=== PATIENT | female | born 1985 | race Caucasian/White ===

== ENCOUNTER → 2016-09-28 | Outpatient (CLI) | payer MEDICAID | LOC: RAD 12:25 | PROVIDERS: ATTEND Family Medicine | DX: S49.91XA Unspecified injury of right shoulder and upper arm, initial encounter (principal); X58.XXXA Exposure to other specified factors, initial encounter ==

== ENCOUNTER → 2016-10-28 | Outpatient (CLI) | payer OTHER, MEDICAID | LOC: RAD 12:16 | PROVIDERS: ATTEND Family Medicine | DX: M54.41 Lumbago with sciatica, right side (principal) | CPT/HCPCS: 72110 ==

== ENCOUNTER → 2016-10-29 | Outpatient (CLI) | payer OTHER, MEDICAID | LOC: RAD 08:10 | PROVIDERS: ATTEND Family Medicine | DX: M25.511 Pain in right shoulder (principal) ==

== ENCOUNTER 2016-11-27 16:00 | Emergency (ER) | payer MEDICAID, OTHER ==
--- NOTE | 2016-11-27 16:28 | ER Document Report ---
ED Medical Screen (RME) - General Chief Complaint: Flank Pain Stated Complaint: RIGHT FLANK PAIN Time Seen by Provider: 11/27/16 16:22 Notes: Patient has been having pain in her right flank region since Monday. She saw her primary care provider on who diagnosed a UTI and put her on Cipro and pain medications. During the night last night, she says that her hands were wet from washing them after going to the bathroom and she tried to open her pill bottle and spilled it all down the drain. Has had some vomiting. No fever. PMH: . Fibromyalgia on tramadol. Allergic to Toradol and NSAIDs. This visit is this patient's fourth visit to this emergency department in 2 months. TRAVEL OUTSIDE OF THE [place] IN LAST 30 DAYS: No - Related Data Allergies/Adverse Reactions: ketorolac [From Toradol] Allergy (Verified 11/27/16 16:02) NSAIDS (Non-Steroidal Anti-Inflamma Allergy (Verified 11/27/16 16:02) Past Medical History Renal/ Medical History: Denies: Hx Peritoneal Dialysis Physical Exam - Vital signs Vitals: Temp Pulse Resp BP Pulse Ox 98.4 F 111 H 14 130/85 H 97 11/27/16 16:02 11/27/16 16:02 11/27/16 16:02 11/27/16 16:02 11/27/16 16:02 Course - Vital Signs Vital signs: Temp Pulse Resp BP Pulse Ox 98.4 F 111 H 14 130/85 H 97 11/27/16 16:02 11/27/16 16:02 11/27/16 16:02 11/27/16 16:02 11/27/16 16:02
[2016-11-27 16:58] LABS: ABSOLUTE BASOPHILS # (AUTO) 0.1 10^3/uL (0.0-0.2); ABSOLUTE EOSINOPHILS # (AUTO) 0.2 10^3/uL (0.0-0.6); ABSOLUTE LYMPHOCYTES (AUTO) 3.9 10^3/uL (0.5-4.7); ABSOLUTE MONOCYTES (AUTO) 0.9 10^3/uL (0.1-1.4); ABSOLUTE NEUT (AUTO) 6.5 10^3/uL (1.7-8.2); BASOPHILS % (AUTO) 0.9 % (0-2); EOSINOPHILS % (AUTO) 1.6 % (0-6); HEMATOCRIT 51.5 % (36.0-47.0); HEMOGLOBIN 17.1 g/dL (12.0-15.5); HGB HCT DIFFERENCE -0.2; LYMPHOCYTES % (AUTO) 33.6 % (13-45); MEAN CORPUSCULAR HEMOGLOBIN 33.4 pg (27.0-33.4); MEAN CORPUSCULAR HGB CONC 33.2 g/dL (32.0-36.0); MEAN CORPUSCULAR VOLUME 101 fl (80-97); MONOCYTES % (AUTO) 7.4 % (3-13); RED BLOOD COUNT 5.11 10^6/uL (3.72-5.28); RED CELL DISTRIBUTION WIDTH 13.1 % (11.5-14.0); SEGMENTED NEUTROPHILS % (AUTO) 56.5 % (42-78); WHITE BLOOD COUNT 11.5 10^3/uL (4.0-10.5)
--- NOTE | 2016-11-27 17:02 | RADIOLOGY REPORT (SQ) ---
EXAM DESCRIPTION: CT LTD RENAL STONE PROTOCOL ON COMPLETED DATE/TIME: 11/27/2016 4:50 pm REASON FOR STUDY: Right flank pain COMPARISON: None. TECHNIQUE: CT scan of the abdomen and pelvis performed without intravenous or oral contrast. Images reviewed with lung, soft tissue, and bone windows. Reconstructed coronal and sagittal MPR images revi ewed. All images stored on PACS. All CT scanners at this facility use dose modulation, iterative reconstruction, and/or weight based d osing when appropriate to reduce radiation dose to as low as reasonably achievable (ALARA). [facility]: Dose Right [facility]: CareDose [facility]: Dose Right [facility]: Teradose 4D [facility]: PsomasFMG RADIATION DOSE: 17.11mGy. LIMITATIONS: None. FINDINGS: LOWER CHEST: No significant findings. No nodules or infiltrates. NON-CONTRASTED LIVER, SPLEEN, ADRENALS: Evaluation limited by lack of IV contrast. No identified sign ificant masses. PANCREAS: No masses. No peripancreatic inflammatory changes. GALLBLADDER: Contracted. No calcified stones. RIGHT KIDNEY AND URETER: No solid masses. No significant calcification. No hydronephrosis or hydroure ter. LEFT KIDNEY AND URETER: No solid masses. No significant calcification. No hydronephrosis or hydrouret er. AORTA AND RETROPERITONEUM: No aneurysm. No retroperitoneal masses or adenopathy. BOWEL AND PERITONEAL CAVITY: No obvious masses or inflammatory changes. No free fluid. APPENDIX: Normal. PELVIS, BLADDER, AND ABDOMINAL WALL:Unremarkable decompressed bladder without stones or gross mass. IUD in the uterus. BONES: No significant findings. OTHER: No other significant finding. IMPRESSION: NO SIGNIFICANT OR ACUTE PROCESS IN THE ABDOMEN OR PELVIS. TECHNICAL DOCUMENTATION: JOB ID: [id number] Quality ID # [id number]: Final reports with documentation of one or more dose reduction techniques (e.g., Au tomated exposure control, adjustment of the mA and/or kV according to patient size, use of iterative reconstruction technique) 2010 [employer]- All Rights Reserved
[2016-11-27 17:04] LABS: APPEARANCE,URINE CLEAR; BILIRUBIN,URINE NEGATIVE (NEGATIVE); GLUCOSE, URINE NEGATIVE (NEGATIVE); KETONES,URINE NEGATIVE (NEGATIVE); LEUKOCYTE ESTERASE,URINE NEGATIVE (NEGATIVE); NITRITE,URINE NEGATIVE (NEGATIVE); PROTEIN,URINE NEGATIVE (NEGATIVE); URINE SPECIFIC GRAVITY 1.015; UROBILINOGEN,URINE NEGATIVE mg/dL (<2.0)
[2016-11-27 17:13] LABS: ALANINE AMINOTRANSFERASE 32 U/L (9-52); ALBUMIN 4.1 g/dL (3.5-5.0); ALKALINE PHOSPHATASE 68 U/L (38-126); ANION GAP 10 (5-19); ASPARTATE AMINO TRANSFERASE 21 U/L (14-36); BILIRUBIN,DIRECT 0.3 mg/dL (0.0-0.4); BILIRUBIN,TOTAL 0.5 mg/dL (0.2-1.3); BLOOD UREA NITROGEN 12 mg/dL (7-20); CALCIUM 9.6 mg/dL (8.4-10.2); CARBON DIOXIDE 30 mmol/L (22-30); CHLORIDE 102 mmol/L (98-107); CREATININE RESULT 0.85 mg/dL (0.52-1.25); GLUCOSE 91 mg/dL (75-110); POTASSIUM 4.9 mmol/L (3.6-5.0); SODIUM 141.6 mmol/L (137-145)
[2016-11-27] MEDS ORDERED: NORMAL SALINE 1000 ML 1,000 ML IV ONE (17:17)
--- NOTE | 2016-11-27 17:30 | ER Document Report ---
ED General - General Chief Complaint: Flank Pain Stated Complaint: RIGHT FLANK PAIN Time Seen by Provider: 11/27/16 16:22 Notes: Patient with h/o kidney stones, fibromyalgia, rt shoulder pain, and recent UTI comes to the office c/o rt flank pain x3 days. Pt was reported to have been seen by her PCM 4 days ago, dx'd with a UTI, and given antibiotics/pain meds. Pt states she did have a tramadol pill this medical policy specialist for her pain. Pt states the pain is to the rt flank and radiates toward her rt side/groin. She is still eating and drinking with no problems. Pt will feel a "pinching" pain if she sits upright in her rt back. Pt also notes suprapubic pressure, burning with urination, and some hematuria once today. Denies any fever, URI, cp, palp , syncope, sob, cough, wheeze, abdominal sharp pains, n/v/d/c, muscle weakness, or rash. Denies any back injury. + smoker. TRAVEL OUTSIDE OF THE [place] IN LAST 30 DAYS: No - Related Data Allergies/Adverse Reactions: ketorolac [From Toradol] Allergy (Verified 11/27/16 16:02) NSAIDS (Non-Steroidal Anti-Inflamma Allergy (Verified 11/27/16 16:02) Past Medical History - Social History Smoking Status: Current Every Day Smoker Family History: Reviewed & Not Pertinent Patient has suicidal ideation: No Patient has homicidal ideation: No Pulmonary Medical History: Reports: Hx Asthma Renal/ Medical History: Reports: Hx Kidney Stones. Denies: Hx Peritoneal Dialysis Surgical Hx: Negative Review of Systems - Review of Systems Notes: REVIEW OF SYSTEMS: CONSTITUTIONAL : Denies fever, chills, or sweats. Denies recent illness. EENT: Denies eye, ear, throat, or mouth pain or symptoms. Denies nasal or sinus congestion or discharge. Denies throat, tongue, or mouth swelling or difficulty swallowing. CARDIOVASCULAR: Denies chest pain. Denies palpitations or racing or irregular heart beat. Denies ankle edema. RESPIRATORY: Denies cough, cold, or chest congestion. Denies shortness of breath, difficulty breathing, or wheezing. GASTROINTESTINAL: Denies abdominal pain or distention. Denies nausea, vomiting , or diarrhea. Denies blood in vomitus, stools, or per rectum. Denies black, tarry stools. Denies constipation. GENITOURINARY: see hpi FEMALE GENITOURINARY: Denies vaginal bleeding, heavy or abnormal periods, irregular periods. Denies vaginal discharge or odor. MUSCULOSKELETAL: see hpi SKIN: Denies rash, lesions or sores. HEMATOLOGIC : Denies easy bruising or bleeding. LYMPHATIC: Denies swollen, enlarged glands. NEUROLOGICAL: Denies confusion or altered mental status. Denies passing out or loss of consciousness. Denies dizziness or lightheadedness. Denies headache. Denies weakness or paralysis or loss of use of either side. Denies problems with gait or speech. Denies sensory loss, numbness, or tingling. Denies seizures. ALL OTHER SYSTEMS REVIEWED AND NEGATIVE. Dictation was performed using [employer] voice recognition software Physical Exam - Vital signs Vitals: Temp Pulse Resp BP Pulse Ox 98.4 F 111 H 14 130/85 H 97 11/27/16 16:02 11/27/16 16:02 11/27/16 16:02 11/27/16 16:02 11/27/16 16:02 Notes: PHYSICAL EXAMINATION: GENERAL: Well-appearing, well-nourished and in no acute distress. HEAD: Atraumatic, normocephalic. EYES: Pupils equal round and reactive to light, extraocular movements intact, sclera anicteric, conjunctiva are normal. ENT: EAC clear b/l. TM's intact b/l without erythema, fluid, or perforation. Nares patent and without discharge. oropharynx clear without exudates. No tonsilar hypertrophy or erythema. Moist mucous membranes. No sinus tenderness. NECK: Normal range of motion, supple without lymphadenopathy. LUNGS: Breath sounds clear to auscultation bilaterally and equal. No wheezes rales or rhonchi. HEART: Regular rate and rhythm without murmurs, rubs, gallops. ABDOMEN: Soft, nontender, nondistended abdomen. No guarding, no rebound. No masses appreciated. Normal bowel sounds present. No CVA tenderness bilaterally. Psoas, obturator, rosving's, percussion negative. Musculoskeletal: FROM to passive/active of LE's b/l. Strength 5+/5. Back: FROM to passive/active. Strength 5+/5. + rt CVAT. No ecchymosis or signs of trauma. Extremities: No cyanosis, clubbing, or edema b/l. Peripheral pulses 2+. Capillary refill less than 3 seconds. NEUROLOGICAL: CN intact. Normal speech, normal gait. Normal sensory, motor exams. Reflexes 2+ periphery. PSYCH: Normal mood, normal affect. SKIN: Warm, Dry, normal turgor, no rashes or lesions noted. Course - Re-evaluation Re-evalutation: Patient comes to the office c/o rt flank pain. CT scan negative. Dx rt flank pain NOS. No red flag symptoms on H&P, labs/imaging. 1L NS given today along with 10mg Oxycodone for pain. Pt noted improvement in symptoms prior to discharge with the fluids and pain management. Labs as noted. She may continue her cipro as per her PCM instructions. I will send her home with Oxycodone 5mg #6 to get her until /Monday for a recheck with her PCM. Return to the ED for worsening symptoms otherwise. Pt in agreement. After performing a Medical Screening Examination, I estimate there is LOW risk for EXPANDING OR RUPTURED ABDOMINAL AORTIC ANEURYSM, CAUDA EQUINA SYNDROME, EPIDURAL MASS LESION, or HERNIATED DISK CAUSING SEVERE SPINAL STENOSIS, thus I consider the discharge disposition reasonable. I have reevaluated this patient multiple times and no significant life threatening changes are noted. The patient and I have discussed the diagnosis and risks, and we agree with discharging home and close follow-up. We also discussed returning to the Emergency Department immediately if new or worsening symptoms occur with the understanding that symptoms and presentations can change. We have discussed the symptoms which are most concerning (e.g., saddle anesthesia, urinary or bowel incontinence or retention, changing or worsening pain) that necessitate immediate return. 11/27/16 17:52 - Vital Signs Vital signs: Temp Pulse Resp BP Pulse Ox 98.4 F 111 H 14 130/85 H 97 11/27/16 16:02 11/27/16 16:02 11/27/16 16:02 11/27/16 16:02 11/27/16 16:02 - Laboratory Result Diagrams: 11/27/16 16:35 11/27/16 16:35 Laboratory results interpreted by me: 11/27/16 11/27/16 16:35 16:35 WBC 11.5 H Hgb 17.1 H Hct 51.5 H MCV 101 H Urine Blood SMALL H Urine Ascorbic Acid 40 H Discharge - Discharge Clinical Impression: Flank pain Condition: Stable Disposition: HOME, SELF-CARE Instructions: Abdominal Pain ([facility]), Oral Narcotic Medication ([facility]) Additional Instructions: Maintain fluid intake Take meds as directed Monitor urinary output Tylenol as needed Recheck with your PCM in 2-3 days Return to the ED with any development of fever, Chest pain, shortness of breath , trouble breathing, cough, abdominal pain, n/v/d, or worsening pain/symptoms. Prescriptions: Oxycodone HCl/Acetaminophen [Oxycodone-Acetaminophen 5-325] 1 tab PO BID PRN #6 tablet PRN Reason: Forms: Elevated Blood Pressure [facility] [[facility] - Follow up as needed
[2016-11-27] MEDS ORDERED: OXYCODONE HCL IR 5 MG TABLET PO ONE (17:35)
[2016-11-27 19:16] VITALS: BP 139/83
== END 2016-11-27 18:35 | disposition home or self-care (01) ==
LOC: ER 16:00
DX: N39.0 Urinary tract infection, site not specified (principal); R31.9 Hematuria, unspecified; R30.0 Dysuria; M54.9 Dorsalgia, unspecified; J45.909 Unspecified asthma, uncomplicated; F17.200 Nicotine dependence, unspecified, uncomplicated; Z88.8 Allergy status to other drugs, medicaments and biological substances; Z87.442 Personal history of urinary calculi
CPT/HCPCS: 99284; 96360; 36415; 87086; 84703; 85025; 80053; 81001; 76380; J7030

== ENCOUNTER 2017-07-21 13:30 | Emergency (ER) | payer OTHER ==
[2017-07-21 13:56] VITALS: BP 130/78
--- NOTE | 2017-07-21 14:22 | ER Document Report ---
ED General - General Chief Complaint: Diarrhea Stated Complaint: DIARRHEA Time Seen by Provider: 07/21/17 14:05 Notes: Is a 32-year-old female. No significant medical problems. Began having diarrhea. Having about 2 episodes an hour. Skin abdominal pain. No fever. No chills. No aches. Diarrhea only. 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 No vomiting. Keeping all the liquids down. TRAVEL OUTSIDE OF THE [place] IN LAST 30 DAYS: No - HPI Onset: Yesterday Onset/Duration: Gradual Quality of pain: No pain Severity: Moderate Pain Level: Denies Associated symptoms: Diarrhea. denies: Body/muscle aches, Fever, Headache, Vomiting, Sweating, Weakness Exacerbated by: Denies Relieved by: Denies - Related Data Allergies/Adverse Reactions: ketorolac [From Toradol] Allergy (Verified 07/21/17 13:31) NSAIDS (Non-Steroidal Anti-Inflamma Allergy (Verified 07/21/17 13:31) Past Medical History - General Information source: Patient - Social History Smoking Status: Current Every Day Smoker Chew tobacco use (# tins/day): No Frequency of alcohol use: Occasional Drug Abuse: None Lives with: Family Family History: Reviewed & Not Pertinent Patient has suicidal ideation: No Patient has homicidal ideation: No - Past Medical History Cardiac Medical History: Reports: None Pulmonary Medical History: Reports: Hx Asthma EENT Medical History: Reports: None Neurological Medical History: Reports: None Endocrine Medical History: Reports: None Renal/ Medical History: Reports: Hx Kidney Stones. Denies: Hx Peritoneal Dialysis Malignancy Medical History: Reports: None GI Medical History: Reports: None Musculoskeltal Medical History: Reports None Psychiatric Medical History: Reports: None Traumatic Medical History: Reports: None Infectious Medical History: Reports: None Past Surgical History: Reports: Hx Section Review of Systems - Review of Systems Constitutional: denies: Fever, Malaise, Weakness EENT: denies: Double vision, Ear pain, Difficulty swallowing, Throat swelling Cardiovascular: denies: Palpitations, Heart racing, Orthopnea, Syncope, Lightheaded Respiratory: denies: Cough, Hurts to breathe, Hemoptysis, Short of breath, Wheezing Gastrointestinal: Diarrhea. denies: Abdominal pain, Nausea, Vomiting Genitourinary: denies: Burning, Dysuria, Discharge, Flank pain, Urgency Female Genitourinary: denies: , Vaginal discharge, Vaginal bleeding, Vaginal odor Musculoskeletal: denies: Back pain, Joint pain, Joint swelling, Muscle pain Skin: denies: Lesions, Lumps, Rash Neurological/Psychological: denies: Confusion, Weakness, Numbness Physical Exam - Vital signs Vitals: Temp Pulse Resp BP Pulse Ox 98.6 F 89 16 130/78 H 99 07/21/17 13:55 07/21/17 13:55 07/21/17 13:55 07/21/17 13:55 07/21/17 13:55 Interpretation: Normal - General General appearance: Appears well, Alert - HEENT Head: Normocephalic, Atraumatic Eyes: Normal Pupils: PERRL - Respiratory Respiratory status: No respiratory distress Chest status: Nontender Breath sounds: Normal Chest palpation: Normal - Cardiovascular Rhythm: Regular Heart sounds: Normal auscultation Murmur: No - Abdominal Inspection: Normal Distension: No distension Bowel sounds: Hyperactive Tenderness: Nontender Organomegaly: No organomegaly - Back Back: Normal, Nontender - Extremities General upper extremity: Normal inspection, Nontender, Normal color, Normal ROM , Normal temperature General lower extremity: Normal inspection, Nontender, Normal color, Normal ROM , Normal temperature, Normal weight bearing. No: Josse's sign - Neurological Neuro grossly intact: Yes Cognition: Normal Orientation: AAOx4 [place] Coma Scale Eye Opening: Spontaneous [place] Coma Scale Verbal: Oriented [place] Coma Scale Motor: Obeys Commands [place] Coma Scale Total: 15 Speech: Normal Motor strength normal: LUE, RUE, LLE, RLE Sensory: Normal - Psychological Associated symptoms: Normal affect, Normal mood - Skin Skin Temperature: Warm Skin Moisture: Dry Skin Color: Normal Course - Re-evaluation Re-evalutation: 07/21/17 14:19 Well-appearing female in no acute distress describing a less than 1 day history of diarrhea. Eating and drinking without difficulty. Will advise that she continue with oral hydration. Return if develops severe abdominal pain, fever, and able to keep liquids down. Patient is afebrile at this time so low yield on influenza test. Do not feel compelled at this time to run any testing on patient and she appears extremely well. - Vital Signs Vital signs: Temp Pulse Resp BP Pulse Ox 98.6 F 89 16 130/78 H 99 07/21/17 13:55 07/21/17 13:55 07/21/17 13:55 07/21/17 13:55 07/21/17 13:55 Discharge - Discharge Clinical Impression: Enteritis Condition: Good Disposition: HOME, SELF-CARE Instructions: Diarrhea, Nonspecific ([facility]) Additional Instructions: If you are unable to keep your liquids or food down, intractable vomiting, severe abdominal pain and fever or for any other concerns in the next 24 hours please return. Prescriptions: Ondansetron [Zofran Odt 4 mg Tablet] 1 - 2 tab PO Q4H PRN #15 tab.rapdis PRN Reason: For Nausea/Vomiting Forms: Return to Work
== END 2017-07-21 14:33 | disposition home or self-care (01) ==
LOC: ER 13:30
DX: K52.9 Noninfective gastroenteritis and colitis, unspecified (principal); F17.200 Nicotine dependence, unspecified, uncomplicated; Z87.442 Personal history of urinary calculi
CPT/HCPCS: 99283

== ENCOUNTER 2017-12-26 09:57 | Emergency (ER) | payer OTHER ==
[2017-12-26 10:02] VITALS: BP 127/74
[2017-12-26] MEDS ORDERED: DIPHENHYDRAMINE HCL 50 MG CAPSULE PO ONE (10:18)
[2017-12-26] MEDS ORDERED: FAMOTIDINE 20 MG TABLET PO ONE (10:18)
[2017-12-26] MEDS ORDERED: HYDROCODONE/ACETAMINOPHEN 5-325 MG TABLET PO ONE (10:18)
[2017-12-26] MEDS ORDERED: DEXAMETHASONE 4 MG TABLET PO ONE (10:18)
--- NOTE | 2017-12-26 10:22 | ER Document Report ---
HPI - HPI Patient complains to provider of: Wasp sting Onset: Yesterday Onset/Duration: Sudden Quality of pain: Achy Pain Level: 4 Context: Patient states that she was stung by a wasp to the right synagogue area. Patient complains of swelling and pain to the right side of her face. Patient denies any rash, difficulty breathing or chest pain. Associated Symptoms: Other - Insect sting Exacerbated by: Denies Relieved by: Denies Similar symptoms previously: Yes Recently seen / treated by doctor: No - ROS ROS below otherwise negative: Yes Systems Reviewed and Negative: Yes All other systems reviewed and negative - CONSTITUTIONAL Constitutional: DENIES: Fever - NEURO Neurology: REPORTS: Headache - GASTROINTESTINAL Gastrointestinal: DENIES: Nausea, Patient vomiting - MUSCULOSKELETAL Musculoskeletal: DENIES: Back Pain, Neck Pain - DERM Skin Color: Normal Skin Problems: None Past Medical History - General Information source: Patient - Social History Smoking Status: Current Every Day Smoker Smoking Education Provided: Yes Frequency of alcohol use: None Drug Abuse: None 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 Denies: Hx Peritoneal Dialysis Musculoskeltal Medical History: Reports Hx Fibromyalgia Past Surgical History: Reports: Hx Section, Hx Oral Surgery Vertical Provider Document - CONSTITUTIONAL Agree With Documented VS: Yes Exam Limitations: No Limitations General Appearance: WD/WN, No Apparent Distress - INFECTION CONTROL TRAVEL OUTSIDE OF THE [place] IN LAST 30 DAYS: No - HEENT HEENT: Atraumatic, Normocephalic, PERRLA Notes: Extraocular movements intact. Subtle swelling to right synagogue and lateral periorbital area of right eye, normal skin color and temperature, no concern for cellulitis - NECK Neck: Normal Inspection, Supple - RESPIRATORY Respiratory: Breath Sounds Normal, No Respiratory Distress - CARDIOVASCULAR Cardiovascular: Regular Rate, Regular Rhythm - BACK Back: Normal Inspection - MUSCULOSKELETAL/EXTREMETIES Musculoskeletal/Extremeties: MAEW - NEURO Level of Consciousness: Awake, Alert, Appropriate Motor/Sensory: No Motor Deficit - DERM Integumentary: Warm, Dry. negative: Rash, Abscess Course - Re-evaluation Re-evalutation: 12/26/17 10:20 Patient is requesting to dispense pack of narcotics to go home with for her facial pain. Review of controlled substance database demonstrates the patient does have current prescriptions for tramadol, oxycodone as well as Lyrica. Patient encouraged to take her chronic pain medications that she is prescribed. - Vital Signs Vital signs: Temp Pulse Resp BP Pulse Ox 98.8 F 91 14 127/74 H 100 12/26/17 10:01 12/26/17 10:01 12/26/17 10:01 12/26/17 10:01 12/26/17 10:01 Discharge - Discharge Clinical Impression: Wasp sting Qualifiers: Encounter type: initial encounter Injury intent: undetermined intent Qualified Code(s): T63.464A - Toxic effect of venom of wasps, undetermined, initial encounter Condition: Stable Disposition: HOME, SELF-CARE Instructions: Use of Diphenhydramine, Insect Sting ([facility]), Steroid Medication Additional Instructions: Return immediately for any new or worsening symptoms Followup with your primary care provider, call tomorrow to make a followup appointment Take Benadryl [id number] every 6 hours as directed to help with her symptoms Take Pepcid 20 mg orally twice a day to help with your symptoms Take your chronic pain medications that you have at home as prescribed for your facial pain Forms: Smoking Cessation Education, Return to Work Referrals: ALANNA CHENG DO [Primary Care Provider] - Follow up as needed
== END 2017-12-26 11:00 | disposition home or self-care (01) ==
LOC: ER 09:57
DX: T63.461A Toxic effect of venom of wasps, accidental (unintentional), initial encounter (principal); R51 Headache; R22.0 Localized swelling, mass and lump, head; M79.7 Fibromyalgia; G89.29 Other chronic pain; Z79.891 Long term (current) use of opiate analgesic; F17.200 Nicotine dependence, unspecified, uncomplicated; J45.909 Unspecified asthma, uncomplicated
CPT/HCPCS: 99281

== ENCOUNTER 2018-11-18 12:10 | Emergency (ER) | payer SELFPAY ==
--- NOTE | 2018-11-18 12:49 | ER Document Report ---
HPI - HPI Patient complains to provider of: Neck pain Time Seen by Provider: 11/18/18 12:49 Onset: This morning Onset/Duration: Sudden Quality of pain: Achy Severity: Severe Pain Level: 4 Context: patient presents emergency department with complaints of right-sided neck pain. She reports pain started this morning. 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 Denies trauma. Denies other symptoms such as fever vomiting diarrhea. Patient reports she took a Percocet and Flexeril that she had had at home and it did relieve some of the pain. She has also tried 20 minutes of ice. no Relief. Patient is tearful. She reports she went to see a chiropractor couple months ago and it made her neck pain worse. She now has headaches. 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 Denies: Hx Peritoneal Dialysis Musculoskeletal Medical History: Reports Hx Fibromyalgia Past Surgical History: Reports: Hx Section, Hx Oral Surgery Vertical Provider Document - CONSTITUTIONAL Agree With Documented VS: Yes Exam Limitations: No Limitations General Appearance: WD/WN, No Apparent Distress - tearful - INFECTION CONTROL TRAVEL OUTSIDE OF THE [place] IN LAST 30 DAYS: No - HEENT HEENT: Atraumatic, Normocephalic. negative: Conjuctival Injection, Pharyngeal Erythema - NECK Neck: Normal Inspection - denies vertebral tenderness. Pain is morally focused on right side trapezius area complains of pain when area palpated. Good distal movement and sensation no erythema no swelling no warmth no signs of infection. reports pain when she lifts her right arm. negative: Lymphadenopathy-Left, Lymphadenopathy-Right - RESPIRATORY Respiratory: Breath Sounds Normal, No Respiratory Distress - CARDIOVASCULAR Cardiovascular: Regular Rate - BACK Back: Normal Inspection - no obvious deformity, good distal movement and sensation - MUSCULOSKELETAL/EXTREMETIES Musculoskeletal/Extremeties: ROSENDO MELENDEZ - NEURO Level of Consciousness: Awake, Alert, Appropriate Motor/Sensory: No Motor Deficit - DERM Integumentary: Warm, Dry Adult Front & Back Diagram: 1 - reports pain with palpation 2 - reports pain Course - Re-evaluation Re-evalutation: 11/18/18 13:24 Patient was instructed to take her current pain medications. Was also instructed on Flexeril. Patient reports she has for Flexeril at home so prescription was wrote for that. Patient reports she took a taxi here asking for something stronger Percocet ordered. She was instructed on the importance of follow-up with her primary care provider Dr. Jacinto she verbalized understanding to all instructions Dictation of this chart was performed using voice recognition software; therefore, there may be some unintended grammatical errors. - Vital Signs Vital signs: Temp Pulse Resp BP Pulse Ox 98.6 F 95 16 134/85 H 98 11/18/18 12:23 11/18/18 12:23 11/18/18 12:23 11/18/18 12:23 11/18/18 12:23 Discharge - Discharge Clinical Impression: right side trapezius pain Condition: Stable Disposition: HOME, SELF-CARE Instructions: Muscle Relaxers ([facility]), Muscle Strain ([facility]) Additional Instructions: *You have been evaluated for right side trapezius pain *Take flexeril as prescribed *Follow up with Dr. Jacinto tomorrow for recheck *Take Tylenol as indicated for pain *Return to ED for worsening condition, changes, needs Monitor your blood pressure. Your blood pressure was elevated today. This may be because you were anxious, in pain or because you need medication. It is important to follow up with your primary care provider for full evaluation. Prescriptions: Cyclobenzaprine HCl [Flexeril 10 Mg Tablet] 10 mg PO TID #20 tablet Forms: Elevated Blood Pressure Referrals: ALANNA CHENG DO [Primary Care Provider] - Follow up as needed
[2018-11-18] MEDS ORDERED: OXYCODONE-ACETAMINOPHEN 5-325 MG TABLET PO ONE (13:14)
[2018-11-18 13:19] VITALS: BP 120/68
== END 2018-11-18 13:27 | disposition home or self-care (01) ==
LOC: ER 12:10
DX: M54.89 Other dorsalgia (principal); R51 Headache; J45.909 Unspecified asthma, uncomplicated
CPT/HCPCS: 99283